=== PATIENT | female | born 1985 | race Two or more races ===

== ENCOUNTER 2016-10-10 21:49 | Emergency (ER) | payer OTHER ==
[~2016-10-10] VITALS: Ht 149.9 cm; Wt 63.0 kg
[2016-10-10] MEDS ORDERED: MORPHINE 4 MG/ML 1ML SYRINGE IV ONE (23:15)
--- NOTE | 2016-10-11 01:01 | REP ---
Clinical: Trauma. Technique: AP and lateral views of the right humerus. Findings: There is a transverse, mildly angulated fracture through the mid humeral shaft. No subcutaneous emphysema or radiodense foreign body. Impression: Mid humeral shaft fracture. Signed by Aldo Montanez MD 10/11/2016 12:53 A
[2016-10-11] MEDS ORDERED: MORPHINE 4 MG/ML 1ML SYRINGE IV ONE (01:15)
[2016-10-11] MEDS ORDERED: KETOROLAC 30 MG/ML VIAL (J1885) IV ONE (03:00)
[2016-10-11] MEDS: MORPHINE 4 MG/ML 1ML SYRINGE IV PRN ×2 (03:03→05:55)
--- NOTE | 2016-10-11 05:08 | REP ---
Clinical: Post reduction. Right humeral fracture. Technique: AP and lateral views of the right humerus. Comparison: 10/10/2016 at 10:28 p.m. Findings: There is a transverse fracture through the mid the humeral shaft with approximately 6 mm of lateral displacement. Impression: Transverse mid humeral shaft fracture. Signed by Aldo Montanez MD 10/11/2016 04:59 A
[2016-10-11 06:07] VITALS: BP 119/68
[2016-10-11] MEDS ORDERED: PERC5TAB12 PO (06:07)
[2016-10-11] MEDS ORDERED: OXYCODONE/APAP 5MG/325MG(BULK FOR ED) 1 TABLET PO ONE (06:30)
== END 2016-10-11 06:37 | disposition home or self-care (01) ==
LOC: EDBD 21:49 → M ED 21:49
DX: S42.324A Nondisplaced transverse fracture of shaft of humerus, right arm, initial encounter for closed fracture (principal); V23.5XXA Motorcycle passenger injured in collision with car, pick-up truck or van in traffic accident, initial encounter; Y92.410 Unspecified street and highway as the place of occurrence of the external cause; Y93.9 Activity, unspecified; Y99.9 Unspecified external cause status
CPT/HCPCS: 29105; 73060; 96374; 96375; 96376; 99284; J1885